=== PATIENT | female | born 1990 | race Two or more races ===

== ENCOUNTER 2021-03-08 01:40 | Emergency (ER) | payer MEDICAID, OTHER ==
[~2021-03-08] VITALS: Ht 157.5 cm; Wt 68.0 kg
[2021-03-08] MEDS ORDERED: ALBUTEROL SULF 2.5 MG/0.5ML(0.5%) NEB SOLN NEB ONE (01:45)
[2021-03-08] MEDS ORDERED: IPRATROPIUM BROM 0.5 MG/2.5ML INH SOL NEB ONE (01:45)
[2021-03-08 02:24] VITALS: BP 115/77
== END 2021-03-08 02:34 | disposition home or self-care (01) ==
LOC: ER 01:44
DX: J45.909 Unspecified asthma, uncomplicated (principal); T50.995A Adverse effect of other drugs, medicaments and biological substances, initial encounter; Y92.89 Other specified places as the place of occurrence of the external cause
CPT/HCPCS: 94640; 99283; J7644

== ENCOUNTER 2021-12-01 05:22 | Emergency (ER) | payer MEDICAID ==
[~2021-12-01] VITALS: Ht 157.5 cm; Wt 62.0 kg
[2021-12-01 06:22] LABS: Basophils # (auto) 0.1 10 ^3/uL (0-0.2); Basophils % (auto) 0.9 % (0.0-2.0); Eosinophils # (auto) 0.6 10 ^3/uL (0-0.8); Eosinophils % (auto) 6.9 % (0.0-7.0); Hematocrit 45.4 % (36.0-46.0); Hemoglobin 14.9 g/dL (12.2-16.2); Lymphocytes # (auto) 2.9 10 ^3/uL (0.4-5.4); Lymphocytes % (auto) 34.2 % (10.0-50.0); Mean Corpuscular Hemoglobin 31.4 pg (28.0-32.0); Mean Corpuscular Hgb Conc. 32.9 g/dL (32.0-36.0); Mean Corpuscular Volume 95.4 fL (80.0-100.0); Monocytes # (auto) 0.7 10 ^3/uL (0-1.3); Monocytes % (auto) 7.8 % (0.0-12.0); Neutrophils # (auto) 4.3 10 ^3/uL (1.6-8.6); Neutrophils % (auto) 50.2 % (37.0-80.0); Nucleated Red Blood Cells % 0.1 %; Red Blood Cells 4.76 10^6/uL (4.0-5.20); Red Cell Distribution Width 12.2 % (11.8-14.3); White Blood Cell 8.6 10^3/uL (4.4-10.8)
[2021-12-01 06:39] LABS: Urine Bacteria NONE SEEN /hpf (None Seen); Urine Blood Negative /uL (Negative); Urine Mucus FEW (None Seen); Urine WBC 3 /hpf (0 - 5)
[2021-12-01 06:40] LABS: Albumin 3.9 g/dL (3.4-5.0); BUN/Creatinine Ratio 12.2; Calcium 8.5 mg/dL (8.5-10.1); Potassium 3.9 mmol/L (3.5-5.1)
[2021-12-01 06:43] LABS: Bilirubin, Total 0.3 mg/dL (0.2-1.0); Total Protein 7.3 g/dL (6.4-8.2)
[2021-12-01] MEDS ORDERED: KETOROLAC TROMETH 60MG/2ML VIAL IM ONE (07:30)
[2021-12-01 08:50] VITALS: BP 128/84
[2021-12-01] MEDS ORDERED: IBUP600T27 PO (09:25)
== END 2021-12-01 09:29 | disposition home or self-care (01) ==
LOC: ER 05:22
DX: K59.00 Constipation, unspecified (principal); M54.50 Low back pain, unspecified; J45.909 Unspecified asthma, uncomplicated; Z79.1 Long term (current) use of non-steroidal anti-inflammatories (NSAID)
CPT/HCPCS: 36415; 74176; 80053; 81001; 83690; 84702; 85025; 96372; 99284; J1885

== ENCOUNTER 2022-01-15 09:40 | Emergency (ER) | payer MEDICAID, OTHER ==
[~2022-01-15] VITALS: Ht 154.9 cm; Wt 71.5 kg
[~2022-01-15 09:40] MED LIST: IBUP600T27 PO
[2022-01-15 10:55] VITALS: BP 113/75
== END 2022-01-15 18:53 | disposition left against medical advice (07) ==
LOC: ER 09:40
DX: T22.011A Burn of unspecified degree of right forearm, initial encounter (principal); Z53.21 Procedure and treatment not carried out due to patient leaving prior to being seen by health care provider; X15.8XXA Contact with other hot household appliances, initial encounter; Y93.89 Activity, other specified; Y92.89 Other specified places as the place of occurrence of the external cause; Y99.8 Other external cause status

== ENCOUNTER 2023-03-13 22:37 | Emergency (ER) | payer MEDICAID, OTHER ==
[~2023-03-13] VITALS: Ht 154.9 cm; Wt 68.8 kg
[~2023-03-13 22:37] MED LIST changes: +IBUP-1454 PO; -IBUP600T27 PO
[2023-03-13 22:58] VITALS: BP 107/69; PULSE 77; RESP 16; O2SAT 98
== END 2023-03-14 03:16 | disposition left against medical advice (07) ==
LOC: ER 22:37
DX: M25.511 Pain in right shoulder (principal); Z53.21 Procedure and treatment not carried out due to patient leaving prior to being seen by health care provider

== ENCOUNTER 2023-11-29 21:52 | Emergency (ER) | payer MEDICAID ==
[~2023-11-29] VITALS: Ht 154.9 cm; Wt 71.2 kg
[2023-11-29 22:45] VITALS: PULSE 111; RESP 16; O2SAT 95
[2023-11-30 00:30] VITALS: BP 109/80; PULSE 87; RESP 18; TEMP 98; O2SAT 93
[2023-11-30] MEDS: DexAMETHasone SOD PHOS 10MG/1ML VIAL INJ IM ONE (01:43)
[2023-11-30] MEDS ORDERED: FLUT250M2 INH (02:28)
== END 2023-11-30 02:34 | disposition home or self-care (01) ==
LOC: ER 21:52
DX: J45.30 Mild persistent asthma, uncomplicated (principal)
CPT/HCPCS: 71046; 96372; 99283; J1100

== ENCOUNTER 2024-01-02 19:05 | Emergency (ER) | payer MEDICAID ==
[~2024-01-02] VITALS: Ht 154.9 cm; Wt 69.8 kg
[2024-01-02 19:34] VITALS: BP 120/78; PULSE 79; RESP 18; TEMP 98.8; O2SAT 96
[2024-01-02] MEDS ORDERED: FLUT250M2 INH (20:06)
== END 2024-01-02 20:16 | disposition home or self-care (01) ==
LOC: ER 19:05
DX: J45.909 Unspecified asthma, uncomplicated (principal); Z76.0 Encounter for issue of repeat prescription

== ENCOUNTER 2024-05-11 07:22 | Inpatient (IN) | payer MEDICAID ==
[~2024-05-11] VITALS: Ht 157.5 cm; Wt 72.4 kg
--- NOTE | 2024-05-11 07:38 | ECG ---
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
--- NOTE | 2024-05-11 11:22 | ED.PDOC ---
GI ASSESSMENT HPI Comments 33 year old female presents to the ED with a chief complaint of abdominal pain onset 2 days. Patient states she began experiencing abdominal pain, worse ins suprapubic region as well as dark stool, nausea, vomiting, diarrhea, fever. PMHx asthma. Denies chest pain, dizziness, headache, blurry vision, dysuria, hematuria. No other symptoms or modifying factors present at this time. Chief Complaint: GI Bleed Time Seen by MD: 10:58 Primary Care Provider: unknown Reviewed Notes: Medications, Allergies Allergies: Coded Allergies: NO KNOWN ALLERGIES (Unverified , 03/08/21) Home Meds Active Scripts Ibuprofen (Ibuprofen) 600 Mg Tab, 600 MG PO TID, #30 TAB Prov:DANISH OTERO 12/01/21 Information Source: Patient Mode of Arrival: Ambulatory Timing: Days Duration: Since onset Prehospital treatment: None Quality: Cramping Stool: Tarry Severity: Moderate Recent: None Recent Hx of: None Pain Location: Suprapubic Modifying Factors: Nothing Associated sign and symptoms: Nausea, Vomiting, Diarrhea, Melena, Abdominal Pain, Fever Past Medical History PAST MEDICAL HISTORY: Asthma Surgical History: Denies all surgeries DIRECTOR TRANSPORTATION History: No Pertinent DIRECTOR TRANSPORTATION History Family History Family History: Reviewed,noncontributory to illness Social History Smoker: Non-Smoker Alcohol: Denies ETOH Use Drugs: Denies Drug Use Lives In: Home Constitutional: reports: fever; denies: chills, diaphoresis, fatigue, malaise, sweats, weakness, others EENTM: denies: blurred vision, double vision, ear bleeding, ear discharge, ear drainage, ear pain, ear ringing, eye pain, eye redness, hearing loss, mouth pain, mouth swelling, nasal discharge, nose bleeding, nose congestion, nose pain, photophobia, tearing, throat pain, throat swelling, voice changes, others Respiratory: denies: cough, hemoptysis, orthopnea, SOB at rest, shortness of breath, SOB with excertion, stridor, wheezing, others Cardiovascular: denies: chest pain, dizzy spells, diaphoresis, Dyspnea on exertion, edema, irregular heart beat, left arm pain, lightheadedness, palpitations, PND, syncope, others Gastrointestinal: reports: abdominal pain, diarrhea, melena, nausea, vomiting; denies: abdomen distended, blood streaked bowels, constipated, dysphagia, difficulty swallowing, hematemesis, poor appetite, poor fluid intake, rectal bleeding, rectal pain, others Genitourinary: denies: abnormal vagina bleeding, burning, dyspareunia, dysuria, flank pain, frequency, hematuria, incontinence, pain, , vagina discharge, urgency, others Neurological: denies: dizziness, fainting, headache, left sided numbness, left sided weakness, numbness, paresthesia, pre-existing deficit, right sided numbness, right sided weakness, seizure, speech problems, tingling, tremors, weakness, others Musculoskeletal: denies: back pain, gout, joint pain, joint swelling, muscle pain, muscle stiffness, neck pain, others Integumetry: denies: bruises, change in color, change in hair/nails, dryness, laceration, lesions, lumps, rash, wounds, others Allergic/Immunocompromised: denies: Difficulty Healing, Frequent Infections, Hives, Itching, others Hematologic/Lymphatic: denies: anemia, blood clots, easy bleeding, easy bruising, swollen glands, others Endocrine: denies: excessive hunger, excessive sweating, excessive thirst, excessive urination, flushing, intolerance to cold, intolerance to heat, unexplained weight gain, unexplained weight loss, others Psychiatric: denies: anxiety, bipolar disorder, depression, hopeless, panic disorder, schizophrenia, sleepless, suicidal, others All Other Systems: Reviewed and Negative Physical Exam General Appearance: Mild Distress, Obese HEENT: Normal ENT Inspection, PERRL/EOMI Neck: Full Range of Motion, Non-Tender Respiratory: Chest Non-Tender, Lungs Clear, No Accessory Muscle Use, No Respiratory Distress, Normal Breath Sounds Cardiovascular: Tachycardia Breast Exam: Deferred Gastrointestinal: No Organomegaly, Non Tender, No Pulsatile Mass, Normal Bowel Sounds, Soft Genitalia: Deferred Pelvic: Deferred Rectal: Deferred Extremities: No calf tenderness, Normal capillary refill, Normal inspection, Normal range of motion, Non-tender, No pedal edema Neurologic: Alert, green pipefitter II-XII nml as Tested, No Motor Deficits, Normal Affect, Normal Mood, No Sensory Deficits Cerebellar Function: Normal Reflexes: Normal Skin: Dry, Normal Color, Warm Peripheral Pulses: 1+ carotid (R), 1+ carotid (L) Lymphatic: No Adenopathy EKG EKG : Pulse Rate (adult): 129 Dexter: LAD Cardiac Rhythm: ST Hypertrophy: LAE Was a procedure done? Was a procedure done?: No GI differential Dx Differential Diagnosis: Diverticular disease, Esophagitis, Gastritis/PUD, Gastroenteritis, GI hemorrhage, Inflammatory BD, Pancreatitis, UTI, Dehydration, Diabetes/ DKA, Drug toxicity, Electrolyte Imbalance, Food Poisoning, , Hypovolemia, Renal Failure X-Ray, Labs, Meds, VS Vital Signs Date Time Temp Pulse Resp B/P (MAP) Pulse Ox O2 Delivery O2 Flow Rate FiO2 05/11/24 17:00 94 14 126/88 (101) 96 05/11/24 15:00 110 16 118/75 (89) 97 05/11/24 12:00 100 16 161/99 (119) 98 05/11/24 11:43 129 05/11/24 10:00 96 16 112/81 (91) 96 05/11/24 09:34 104 20 99 Room Air 05/11/24 09:34 98.1 104 20 123/79 (94) 99 98.1 05/11/24 07:33 129 05/11/24 07:30 98.1 110 18 124/73 (90) 93 Lab Test 05/11/24 12:30 05/11/24 12:00 Range/Units Urine Color Yellow Yellow Urine Clarity Clear Clear Urine pH 6.0 5.0-9.0 Urine Specific [place] 1.024 1.001-1.035 Urine Protein Trace H Negative Urine Ketones 1+ H Negative Urine Blood Negative Negative /uL Urine Nitrite Negative Negative Urine Bilirubin Negative Negative Urine Urobilinogen Normal Negative mg/dL Urine Leukocyte Esterase Negative Negative /uL Urine RBC 2 0 - 4 /hpf Urine WBC 1 0 - 5 /hpf Urine Squamous Epithelial Cells Few <5 /hpf Urine Bacteria None seen None Seen /hpf Urine Mucus Few None Seen Urine Glucose Normal Normal mg/dL White Blood Count 7.3 4.4-10.8 10^3/uL Red Blood Count 4.85 4.0-5.20 10^6/uL Hemoglobin 15.7 12.2-16.2 g/dL Hematocrit 47.0 H 36.0-46.0 % Mean Corpuscular Volume 97.0 80.0-100.0 fL Mean Corpuscular Hemoglobin 32.4 H 28.0-32.0 pg Mean Corpuscular Hemoglobin Concent 33.4 32.0-36.0 g/dL Red Cell Distribution Width 12.7 11.8-14.3 % Platelet Count 229 140-450 10^3/uL Mean Platelet Volume 7.2 6.9-10.8 fL Neutrophils (%) (Auto) 64.9 37.0-80.0 % Lymphocytes (%) (Auto) 21.0 10.0-50.0 % Monocytes (%) (Auto) 11.3 0.0-12.0 % Eosinophils (%) (Auto) 1.7 0.0-7.0 % Basophils (%) (Auto) 1.1 0.0-2.0 % Neutrophils # (Auto) 4.8 1.6-8.6 10 ^3/uL Lymphocytes # (Auto) 1.5 0.4-5.4 10 ^3/uL Monocytes # (Auto) 0.8 0-1.3 10 ^3/uL Eosinophils # (Auto) 0.1 0-0.8 10 ^3/uL Basophils # (Auto) 0.1 0-0.2 10 ^3/uL Nucleated Red Blood Cells 0.0 % Prothrombin Time 11.4 9.3-11.8 sec Prothrombin Time INR 1.08 0.9-1.15 Activated Partial Thromboplast Time 29.4 24.5-34.5 SEC Sodium Level 140 136-145 mmol/L Potassium Level 3.2 L 3.5-5.1 mmol/L Chloride Level 109 H 98-107 mmol/L Carbon Dioxide Level 23 20-31 mmol/L Anion Gap 8 5-15 Blood Urea Nitrogen 8 L 9-23 mg/dL Creatinine 0.71 0.550-1.02 mg/dL Glomerular Filtration Rate Calc 117 >90 mL/min BUN/Creatinine Ratio 11.3 10.0-20.0 Serum Glucose 95 74-106 mg/dL Calcium Level 8.5 L 8.7-10.4 mg/dL Magnesium Level 1.7 1.6-2.6 mg/dL Total Bilirubin 0.4 0.2-1.0 mg/dL Aspartate Amino Transferase (AST) 27 13-40 U/L Alanine Aminotransferase (ALT) 35 7-40 U/L Alkaline Phosphatase 102 46-116 U/L Total Protein 6.4 5.7-8.2 g/dL Albumin 4.0 3.2-4.8 g/dL Lipase 34 12-53 U/L Beta HCG, Quantitative 0.8 L 1.5-4.2 mIU/mL Current Medications Medications (Trade) Dose Ordered Sig/Daniel Route Start Time Stop Time Status Last Admin Sodium Chloride 1,000 ml @ 1,000 mls/hr Q1H ONCE IVB 05/11/24 11:15 05/11/24 12:14 DC 05/11/24 11:36 [place] [id number] Ph: [phone] DIAGNOSTIC IMAGING Diagnostic Imaging Report : [id number] Signed PATIENT: VIANNEY GONZALEZACCT: [id number] UNIT: [id number] : 1990 LOC: ER ROOM / BED: / AGE / SEX: 33 / F ADM STATUS: REG ER SERVICE [id number] ORDERING PHYSICIAN: MARITA SANTOS MD PROCEDURE(s): ABPLIV - CT AB PEL WITH IV CON ONLY REASON: RECTAL BLEEDING ORDER NUMBER(s): [id number], ACCESSION NUMBER(s): [id number] Procedure: CT CT AB PEL WITH IV CON ONLY 05/11/2024 01:48 PM Indication: RECTAL BLEEDING Comparison Study: None available at time of dictation. Technique: Axial images were obtained and reformatted in coronal and sagittal planes. All CT scans at this medical facility are performed using dose modulation techniques as appropriate to a performed exam including the following: Automated exposure control was utilized; adjustment of the MA and/or KV according to patient size; and use of iterative reconstruction technique. CT Dose: CTDI volume is 8 mGy. Dose-length product is 431 mGy*cm FINDINGS: Lower neck: Unremarkable. Cardiomediastinal: The heart is normal in size. Aorta is normal in caliber. No mediastinal lymphadenopathy. Lungs: No focal pulmonary opacity. No pleural effusion. No pneumothorax. Hepatobiliary: Unremarkable. Spleen: Unremarkable. Pancreas: Unremarkable. Adrenal Glands: Unremarkable. tract: The kidneys are normal in size bilaterally without hydronephrosis or nephrolithiasis. The urinary bladder is unremarkable. GI tract: The stomach is grossly normal in appearance. Nondistended fluid-filled small bowel loops are seen in the lower abdomen. Liquid stool is seen in the lumen of the ascending and transverse colon with well-healed mural hyperemia but without significant mural enhancement nor pericolonic fat stranding. Evaluation of the descending colon, sigmoid colon and rectum is limited due to lack of distention. Amorphous dense material noted in the lumen of the left colon and rectum. Lymphatics: No mesenteric, retroperitoneal or periportal lymphadenopathy. Vasculature: The abdominal aorta is normal in in caliber. Pelvic Organs: Small amount of free fluid is noted in cul-de-sac. The uterus and ovaries unremarkable. Bones/soft tissues: No acute osseous abnormality. A small fat-containing umbilical hernia noted. Other: None. IMPRESSION: 1. Amorphous dense material in the lumen of the descending colon, sigmoid colon and rectum which may reflect oral contrast or ingested material. Correlate with history. 2. Nondistended fluid-filled small bowel loops in the lower abdomen and liquid stool in the lumen of the large bowel may reflect gastroenteritis and diarrheal state. Mild colitis is a possibility. There is no significant large bowel wall thickening or pericolonic fat stranding but hyperemia noted. 3. Small amount of free fluid in cul-de-sac, probably physiologic. ATED BY: ALEXANDRIA WALTON MD DICTATED DATE/TIME: 05/11/241411 SIGNED BY: ALEXANDRIA WALTON MD SIGNED DATE/TIME: 05/11/241411 CC: [place] [address] Ph: [phone] DIAGNOSTIC IMAGING Diagnostic Imaging Report : [id number] Signed PATIENT: VIANNEY GONZALEZ ACCT: [id number] UNIT: [id number] : 1990 LOC: ER ROOM / BED: / AGE / SEX: 33 / F ADM STATUS: REG ER SERVICE 1109 ORDERING PHYSICIAN: MARITA SANTOS MD PROCEDURE(s): CXR2 - CHEST TWO VIEWS ROUTINE REASON: RECTAL BLEEDING ORDER NUMBER(s): [id number], ACCESSION NUMBER(s): [id number] EXAM: XY CHEST TWO VIEWS ROUTINE CLINICAL HISTORY: pain COMPARISON: XY CHEST TWO VIEWS ROUTINE on DOS: 11/30/23 TECHNIQUE: Frontal and lateral view of the chest was obtained FINDINGS: Lines and Tubes: None Lungs: No focal consolidation. Pleura: No effusion. No pneumothorax. Cardiomediastinal contours: Unremarkable Bones: No acute osseous abnormality. IMPRESSION: No acute cardiopulmonary disease. ATED BY: PARISH ARIAS MD DICTATED DATE/TIME: 05/11/241408 SIGNED BY: PARISH ARIAS MD SIGNED DATE/TIME: 05/11/241408 CC: X-Ray, Labs, Meds, VS Comment COURSE IN THE EMERGENCY DEPARTMENT EVENTFUL PATIENT CAME IN COMPLAINING OF GI BLEEDING ABDOMINAL CRAMPS BLACK STOOLS NAUSEA AND DIARRHEA AND FEVER FOR THE PAST THREE DAYS BLOOD PRESSURE 123/79 WITH A HEART RATE OF 104 CHEST X-RAY NORMAL EKG SHOWS SINUS TACHYCARDIA AT 129 WITH LEFT ATRIAL ENLARGEMENT LEFT AXIS DEVIATION CBC IS NORMAL URINE NEGATIVE INR 1.08 NEGATIVE LIPASE 34 MAGNESIUM 1.7 CMP NORMAL EXCEPT FOR POTASSIUM OF 3.2 PATIENT WILL BE ADMITTED FOR FURTHER CARE Time of 1ST Reevaluation: 11:28 Reevaluation 1ST: Unchanged Time of 2ND Reevaluation: 15:56 Reevaluation 2ND: Unchanged Patient Education/Counseling: Diagnosis, Treatment, Prognosis Family Education/Counseling: Diagnosis, Treatment, Prognosis (HE EMERGENCY DEPARTMENT PATIENT CAME BACK BECAUSE OF RECTAL BLEEDING ABDOMINAL CRAMPS BLACK STOOLS NAUSEA AND DIARRHEA AND FEVER FOR THE PAST THREE DAYSBLOOD PRESSURE 123/79EKG SHOWS SINUS TACHYCARDIA AT 129 WITH LEFT ATRIAL ENLARGEMENT AND LEFT AXIS DEVIATIONTHE CHEST X-RAY IS NEGATIVE CBC NORMAL URINE NEGATIVE INR 1.08 NEGATIVE LIPASE 34 MAGNESIUM 1.7 CMP NORMAL EXCEPT FOR POTASSIUM OF 3.2CT ABDOMEN AND PELVIS SHOWS MOST PROBABLY COLITIS), No Family Present Additional Information The following tests were ordered, and results were reviewed by me: EKG-x2, CBC, CMP, BETA HCG, LIPASE, UA, CT AB PEL W IV CON, PTPTT, MAGNESIUM, XY CHEST 2 VIEWS I reviewed and agreed with the following test results read by other providers: XY CHEST 2 VIEWS I discussed treatment and results with medical personnel and patient Departure 1 Departure Time of Disposition: 15:58 Impression: Primary Impression: Colitis Additional Impressions: Rectal bleeding Hypokalemia Tachycardia Disposition: ADMITTED INPATIENT Admit to: Tele Condition: Fair Critical Care Note Critical Care Time?: No Stability Stability form required: Yes Unstable for transfer: Telemetry monitoring (Telemetry monitoring required), Requires medication (Requires Med for stabilization) Heart Score Heart Score: Heart Score Response (Comments) Value History N/A 0 EKG Repolarization Disturb 1 Age <45 0 Risk Factors >3 or Hx ASHD 2 Troponin N/A 0 Total 3 I personally scribed for MARITA SANTOS MD ([email or web address]) on 05/11/24 at 11:22. Electronically submitted by Yoli Burgess ([email or web address]). I personally scribed for MARITA SANTOS MD ([email or web address]) on 05/11/24 at 11:29. Electronically submitted by Yoli Burgess ([email or web address]). I personally scribed for MARITA SANTOS MD ([email or web address]) on 05/11/24 at 15:28. Electronically submitted by Yoli Burgess ([email or web address]). MARITA SANTOS MD May 11, 2024 11:22
[2024-05-11] MEDS: SODIUM CHLORIDE 0.9% 1,000 ML IVB ONE (11:36)
[2024-05-11 12:14] LABS: Basophils # (auto) 0.1 10 ^3/uL (0-0.2); Basophils % (auto) 1.1 % (0.0-2.0); Eosinophils # (auto) 0.1 10 ^3/uL (0-0.8); Eosinophils % (auto) 1.7 % (0.0-7.0); Hemoglobin 15.7 g/dL (12.2-16.2); Lymphocytes # (auto) 1.5 10 ^3/uL (0.4-5.4); Mean Corpuscular Hemoglobin 32.4 pg (28.0-32.0); Mean Corpuscular Hgb Conc. 33.4 g/dL (32.0-36.0); Monocytes # (auto) 0.8 10 ^3/uL (0-1.3); Monocytes % (auto) 11.3 % (0.0-12.0); Neutrophils # (auto) 4.8 10 ^3/uL (1.6-8.6); Neutrophils % (auto) 64.9 % (37.0-80.0); Platelet Count (auto) 229 10^3/uL (140-450); Red Blood Cells 4.85 10^6/uL (4.0-5.20); Red Cell Distribution Width 12.7 % (11.8-14.3); White Blood Cell 7.3 10^3/uL (4.4-10.8)
[2024-05-11 12:33] LABS: INR 1.08 (0.9-1.15); Partial Thromboplastin Time 29.4 SEC (24.5-34.5); Prothrombin Time 11.4 sec (9.3-11.8)
[2024-05-11 12:57] LABS: Alanine Aminotransferase 35 U/L (7-40); Alkaline Phosphatase 102 U/L (46-116); Anion Gap 8 (5-15); Aspartate Aminotransferase 27 U/L (13-40); BUN/Creatinine Ratio 11.3 (10.0-20.0); Bilirubin, Total 0.4 mg/dL (0.2-1.0); Carbon Dioxide 23 mmol/L (20-31); Glucose 95 mg/dL (74-106); Lipase 34 U/L (12-53); Magnesium 1.7 mg/dL (1.6-2.6); Sodium 140 mmol/L (136-145); Total Protein 6.4 g/dL (5.7-8.2)
[2024-05-11 13:00] LABS: Urine Bacteria None Seen /hpf (None Seen)
[2024-05-11 13:02] LABS: Blood Urea Nitrogen 8 mg/dL (9-23); Calcium 8.5 mg/dL (8.7-10.4); Chloride 109 mmol/L (98-107); Potassium 3.2 mmol/L (3.5-5.1)
[2024-05-11 13:06] LABS: Urine Blood Negative /uL (Negative); Urine Clarity Clear (Clear); Urine Color Yellow (Yellow); Urine Mucus FEW (None Seen); Urine Protein, UAD TRACE (Negative); Urine Specific Gravity 1.024 (1.001-1.035); Urine Squamous Epithelial Cell FEW /hpf (<5); Urine Urobilinogen Normal (Negative); Urine WBC 1 /hpf (0 - 5)
[2024-05-11] MEDS: IOHEXOL 300 MG/ML 100ML BOTTLE IJ ONE (13:58)
--- NOTE | 2024-05-11 14:10 | DVH ---
EXAM: XY CHEST TWO VIEWS ROUTINE CLINICAL HISTORY: pain COMPARISON: XY CHEST TWO VIEWS ROUTINE on DOS: 11/30/23 TECHNIQUE: Frontal and lateral view of the chest was obtained FINDINGS: Lines and Tubes: None Lungs: No focal consolidation. Pleura: No effusion. No pneumothorax. Cardiomediastinal contours: Unremarkable Bones: No acute osseous abnormality. IMPRESSION: No acute cardiopulmonary disease.
--- NOTE | 2024-05-11 14:14 | DVH ---
Procedure: CT CT AB PEL WITH IV CON ONLY 05/11/2024 01:48 PM Indication: RECTAL BLEEDING Comparison Study: None available at time of dictation. Technique: Axial images were obtained and reformatted in coronal and sagittal planes. All CT scans at this medical facility are performed using dose modulation techniques as appropriate t o a performed exam including the following: Automated exposure control was utilized; adjustment of th e MA and/or KV according to patient size; and use of iterative reconstruction technique. CT Dose: CTDI volume is 8 mGy. Dose-length product is 431 mGy*cm FINDINGS: Lower neck: Unremarkable. Cardiomediastinal: The heart is normal in size. Aorta is normal in caliber. No mediastinal lymphadeno marti. Lungs: No focal pulmonary opacity. No pleural effusion. No pneumothorax. Hepatobiliary: Unremarkable. Spleen: Unremarkable. Pancreas: Unremarkable. Adrenal Glands: Unremarkable. tract: The kidneys are normal in size bilaterally without hydronephrosis or nephrolithiasis. The urinary bladder is unremarkable. GI tract: The stomach is grossly normal in appearance. Nondistended fluid-filled small bowel loops ar e seen in the lower abdomen. Liquid stool is seen in the lumen of the ascending and transverse colon with well-healed mural hyperemia but without significant mural enhancement nor pericolonic fat strand ing. Evaluation of the descending colon, sigmoid colon and rectum is limited due to lack of distenti on. Amorphous dense material noted in the lumen of the left colon and rectum. Lymphatics: No mesenteric, retroperitoneal or periportal lymphadenopathy. Vasculature: The abdominal aorta is normal in in caliber. Pelvic Organs: Small amount of free fluid is noted in cul-de-sac. The uterus and ovaries unremarkabl e. Bones/soft tissues: No acute osseous abnormality. A small fat-containing umbilical hernia noted. Other: None. IMPRESSION: 1. Amorphous dense material in the lumen of the descending colon, sigmoid colon and rectum which may reflect oral contrast or ingested material. Correlate with history. 2. Nondistended fluid-filled small bowel loops in the lower abdomen and liquid stool in the lumen of the large bowel may reflect gastroenteritis and diarrheal state. Mild colitis is a possibility. There is no significant large bowel wall thickening or pericolonic fat stranding but hyperemia noted. 3. Small amount of free fluid in cul-de-sac, probably physiologic.
[2024-05-11] MEDS ORDERED: ONDANSETRON HCL 4 MG/2 ML VIAL IV PRN (18:30)
[2024-05-11] MEDS ORDERED: ACETAMINOPHEN 325 MG TAB PO PRN (18:30)
[2024-05-11] MEDS ORDERED: TEMAZEPAM 15 MG CAP PO PRN (18:30)
[2024-05-11] MEDS: SOD CHL 0.9%/ KCL 40MEQ 1,000 ML IV ONE (18:30)
[2024-05-11] MEDS ORDERED: HYDROcodone-ACET 5/325MG TAB PO PRN (18:30)
[2024-05-11] MEDS: PANTOPRAZOLE 40 MG TAB PO ONE (18:59)
--- NOTE | 2024-05-11 20:26 | DVHHP2 ---
History of Present Illness Reason for Visit: Diarrhea History of Present Illness 33-year-old female presents for evaluation of abdominal pain. Patient endorses a two day history of pain like abdominal pain with associated bloody diarrhea, nausea and vomiting. Denies hematuria. No fever or chills she denies. No other acute complaints reported. Past Medical History Asthma Past Surgical History Denies Family History Noncontributory Smoke: No Drugs: None Lives: with Family Review of Systems Review of Systems Review of systems are currently negative otherwise addressed in HPI. Allergies: Coded Allergies: NO KNOWN ALLERGIES (Unverified , 03/08/21) Medications Current Medications Medications Dose Ordered Sig/Daniel Route Start Time Stop Time Status Last Admin Dose Admin Metronidazole 100 ml @ 100 mls/hr Q8HR IV 05/11/24 22:00 Pantoprazole Sodium 40 mg DAILY@0600 PO 05/12/24 06:00 Acetaminophen/ Hydrocodone Bitart 1 tab Q4HP PRN PO 05/11/24 18:30 Temazepam 15 mg QHSP PRN PO 05/11/24 18:30 Ondansetron HCl 4 mg Q4HP PRN IV 05/11/24 18:30 Acetaminophen 650 mg Q6HP PRN PO 05/11/24 18:30 Exam Vital Signs Vital Signs Date Time Temp Pulse Resp B/P (MAP) Pulse Ox O2 Delivery O2 Flow Rate FiO2 05/11/24 19:44 Room Air* 0 21 05/11/24 19:39 98.8 98 14 115/79 (91) 94 98.8 Exam Gen: 33-year-old female in mild distress Skin: Warm, dry, normal color and texture, no rash. HEENT: Normocephalic atraumatic, mucous membranes moist and pink. Neck: Cervical and supraclavicular nodes normal without enlargement, trachea is midline, thyroid gland is normal without masses. Pulmonary: Clear to auscultation and percussion bilaterally. Cardiac: Regular rate and rhythm. No murmur Abdomen: Soft, nontender, nondistended, bowel sounds present all 4 quadrants, no guarding, no rigidity, no organomegaly. Extremities: No cyanosis, clubbing, no edema Neuro: Cranial nerves II through XII grossly intact, normal affect and speech, no focal motor deficits. Labs/Xrays ORDERING PHYSICIAN: MARITA SANTOS MD PROCEDURE(s): ABPLIV - CT AB PEL WITH IV CON ONLY REASON: RECTAL BLEEDING ORDER NUMBER(s): [id number], ACCESSION NUMBER(s): [id number] Procedure: CT CT AB PEL WITH IV CON ONLY 05/11/2024 01:48 PM Indication: RECTAL BLEEDING Comparison Study: None available at time of dictation. Technique: Axial images were obtained and reformatted in coronal and sagittal planes. All CT scans at this medical facility are performed using dose modulation techniques as appropriate to a performed exam including the following: Automated exposure control was utilized; adjustment of the MA and/or KV according to patient size; and use of iterative reconstruction technique. CT Dose: CTDI volume is 8 mGy. Dose-length product is 431 mGy*cm FINDINGS: Lower neck: Unremarkable. Cardiomediastinal: The heart is normal in size. Aorta is normal in caliber. No mediastinal lymphadenopathy. Lungs: No focal pulmonary opacity. No pleural effusion. No pneumothorax. Hepatobiliary: Unremarkable. Spleen: Unremarkable. Pancreas: Unremarkable. Adrenal Glands: Unremarkable. tract: The kidneys are normal in size bilaterally without hydronephrosis or nephrolithiasis. The urinary bladder is unremarkable. GI tract: The stomach is grossly normal in appearance. Nondistended fluid-filled small bowel loops are seen in the lower abdomen. Liquid stool is seen in the lumen of the ascending and transverse colon with well-healed mural hyperemia but without significant mural enhancement nor pericolonic fat stranding. Evaluation of the descending colon, sigmoid colon and rectum is limited due to lack of distention. Amorphous dense material noted in the lumen of the left colon and rectum. Lymphatics: No mesenteric, retroperitoneal or periportal lymphadenopathy. Vasculature: The abdominal aorta is normal in in caliber. Pelvic Organs: Small amount of free fluid is noted in cul-de-sac. The uterus and ovaries unremarkable. Bones/soft tissues: No acute osseous abnormality. A small fat-containing umbilical hernia noted. Other: None. IMPRESSION: 1. Amorphous dense material in the lumen of the descending colon, sigmoid colon and rectum which may reflect oral contrast or ingested material. Correlate with history. 2. Nondistended fluid-filled small bowel loops in the lower abdomen and liquid stool in the lumen of the large bowel may reflect gastroenteritis and diarrheal state. Mild colitis is a possibility. There is no significant large bowel wall thickening or pericolonic fat stranding but hyperemia noted. 3. Small amount of free fluid in cul-de-sac, probably physiologic. RING PHYSICIAN: MARITA SANTOS MD PROCEDURE(s): CXR2 - CHEST TWO VIEWS ROUTINE REASON: RECTAL BLEEDING ORDER NUMBER(s): [id number], ACCESSION NUMBER(s): [id number] EXAM: XY CHEST TWO VIEWS ROUTINE CLINICAL HISTORY: pain COMPARISON: XY CHEST TWO VIEWS ROUTINE on DOS: 11/30/23 TECHNIQUE: Frontal and lateral view of the chest was obtained FINDINGS: Lines and Tubes: None Lungs: No focal consolidation. Pleura: No effusion. No pneumothorax. Cardiomediastinal contours: Unremarkable Bones: No acute osseous abnormality. IMPRESSION: No acute cardiopulmonary disease. Labs Test 05/11/24 12:30 05/11/24 12:00 Range/Units Urine Color Yellow Yellow Urine Clarity Clear Clear Urine pH 6.0 5.0-9.0 Urine Specific [place] 1.024 1.001-1.035 Urine Protein Trace H Negative Urine Ketones 1+ H Negative Urine Blood Negative Negative /uL Urine Nitrite Negative Negative Urine Bilirubin Negative Negative Urine Urobilinogen Normal Negative mg/dL Urine Leukocyte Esterase Negative Negative /uL Urine RBC 2 0 - 4 /hpf Urine WBC 1 0 - 5 /hpf Urine Squamous Epithelial Cells Few <5 /hpf Urine Bacteria None seen None Seen /hpf Urine Mucus Few None Seen Urine Glucose Normal Normal mg/dL White Blood Count 7.3 4.4-10.8 10^3/uL Red Blood Count 4.85 4.0-5.20 10^6/uL Hemoglobin 15.7 12.2-16.2 g/dL Hematocrit 47.0 H 36.0-46.0 % Mean Corpuscular Volume 97.0 80.0-100.0 fL Mean Corpuscular Hemoglobin 32.4 H 28.0-32.0 pg Mean Corpuscular Hemoglobin Concent 33.4 32.0-36.0 g/dL Red Cell Distribution Width 12.7 11.8-14.3 % Platelet Count 229 140-450 10^3/uL Mean Platelet Volume 7.2 6.9-10.8 fL Neutrophils (%) (Auto) 64.9 37.0-80.0 % Lymphocytes (%) (Auto) 21.0 10.0-50.0 % Monocytes (%) (Auto) 11.3 0.0-12.0 % Eosinophils (%) (Auto) 1.7 0.0-7.0 % Basophils (%) (Auto) 1.1 0.0-2.0 % Neutrophils # (Auto) 4.8 1.6-8.6 10 ^3/uL Lymphocytes # (Auto) 1.5 0.4-5.4 10 ^3/uL Monocytes # (Auto) 0.8 0-1.3 10 ^3/uL Eosinophils # (Auto) 0.1 0-0.8 10 ^3/uL Basophils # (Auto) 0.1 0-0.2 10 ^3/uL Nucleated Red Blood Cells 0.0 % Prothrombin Time 11.4 9.3-11.8 sec Prothrombin Time INR 1.08 0.9-1.15 Activated Partial Thromboplast Time 29.4 24.5-34.5 SEC Sodium Level 140 136-145 mmol/L Potassium Level 3.2 L 3.5-5.1 mmol/L Chloride Level 109 H 98-107 mmol/L Carbon Dioxide Level 23 20-31 mmol/L Anion Gap 8 5-15 Blood Urea Nitrogen 8 L 9-23 mg/dL Creatinine 0.71 0.550-1.02 mg/dL Glomerular Filtration Rate Calc 117 >90 mL/min BUN/Creatinine Ratio 11.3 10.0-20.0 Serum Glucose 95 74-106 mg/dL Calcium Level 8.5 L 8.7-10.4 mg/dL Magnesium Level 1.7 1.6-2.6 mg/dL Total Bilirubin 0.4 0.2-1.0 mg/dL Aspartate Amino Transferase (AST) 27 13-40 U/L Alanine Aminotransferase (ALT) 35 7-40 U/L Alkaline Phosphatase 102 46-116 U/L Total Protein 6.4 5.7-8.2 g/dL Albumin 4.0 3.2-4.8 g/dL Lipase 34 12-53 U/L Beta HCG, Quantitative 0.8 L 1.5-4.2 mIU/mL Assessment/Plan Assessment/Plan Assessment Acute abdominal pain Acute colitis Hypokalemia Acute kidney injury Plan Admit the patient to Med surge to the hospitalist Clear liquid diet Maintenance IV fluids Flagyl Continue treatment per orders. Plan discussed with: Patient My Orders Orders - HAIDER HORTON Procedure Category Date Status Time Sod Chl 0.9%/ Kcl PHA 05/11/24 In Process 40meq 18:30 Metronidazole PHA 05/11/24 In Process 500mg/100ml (Flagyl 22:00 Pantoprazole Tablet PHA 05/12/24 In Process (Protonix Tablet) 06:00 Basic Metabolic Panel LAB 05/12/24 Verified 04:00 Stool Occult Blood LAB 05/11/24 Logged 18:27 Admit ADMIT 05/11/24 Transmitted 18:27 Hydrocodone-Acet PHA 05/11/24 In Process 5/325mg Tab ([place] 18:30 Temazepam (Restoril) PHA 05/11/24 In Process 18:30 Ondansetron Hcl PHA 05/11/24 In Process (Zofran) 18:30 Complete Blood Count LAB 05/12/24 Verified 04:00 Condition: Stable SHRUTHI 05/11/24 In Process 18:27 Acetaminophen Tablet PHA 05/11/24 In Process (Tylenol Tablet) 18:30 Clear Liq Diet DIET 05/11/24 Transmitted Dinner Bedrest With Bathroom SHRUTHI 05/11/24 In Process Privileg 18:27 Date of Service: May 11, 2024 Billing Provider: HAIDER HORTON Common Visit Codes: [id number] INP/OBS CARE (HIGH) HAIDER HORTON May 11, 2024 20:26
[2024-05-11 20:55] VITALS: BP 119/79; PULSE 97; RESP 16; RESP 98; TEMP 97.8; O2SAT 98
[2024-05-11] MEDS: metroNIDAZOLE 500MG/100ML 100 ML IV SCH (22:37)
[2024-05-12 05:14] LABS: Basophils # (auto) 0.1 10 ^3/uL (0-0.2); Basophils % (auto) 0.9 % (0.0-2.0); Eosinophils # (auto) 0.2 10 ^3/uL (0-0.8); Eosinophils % (auto) 3.4 % (0.0-7.0); Hematocrit 43.3 % (36.0-46.0); Hemoglobin 15.1 g/dL (12.2-16.2); Lymphocytes # (auto) 2.3 10 ^3/uL (0.4-5.4); Lymphocytes % (auto) 33.4 % (10.0-50.0); Mean Corpuscular Hemoglobin 32.8 pg (28.0-32.0); Mean Corpuscular Hgb Conc. 34.8 g/dL (32.0-36.0); Mean Corpuscular Volume 94.4 fL (80.0-100.0); Monocytes % (auto) 14.3 % (0.0-12.0); Neutrophils # (auto) 3.3 10 ^3/uL (1.6-8.6); Nucleated Red Blood Cells % 0.2 %; Platelet Count (auto) 232 10^3/uL (140-450); Red Blood Cells 4.59 10^6/uL (4.0-5.20); Red Cell Distribution Width 12.3 % (11.8-14.3); White Blood Cell 6.9 10^3/uL (4.4-10.8)
[2024-05-12 05:17] LABS: Calcium 8.8 mg/dL (8.7-10.4); Chloride 105 mmol/L (98-107); Sodium 138 mmol/L (136-145)
[2024-05-12 05:18] LABS: Anion Gap 8 (5-15); Carbon Dioxide 25 mmol/L (20-31)
[2024-05-12 05:23] LABS: BUN/Creatinine Ratio 8.6 (10.0-20.0); Glucose 92 mg/dL (74-106)
[2024-05-12 05:25] LABS: Blood Urea Nitrogen 6 mg/dL (9-23); Potassium 2.9 mmol/L (3.5-5.1)
[2024-05-12] MEDS: PANTOPRAZOLE 40 MG TAB PO SCH (05:43)
[2024-05-12 08:04] VITALS: BP 100/61; PULSE 89; RESP 20; TEMP 98.2; O2SAT 94
[2024-05-12 11:22] VITALS: BP 96/68; PULSE 86; RESP 18; TEMP 97.8; O2SAT 94
[2024-05-12] MEDS ORDERED: LEVO500T91 PO (13:06)
[2024-05-12] MEDS ORDERED: METR-344 PO (13:06)
--- NOTE | 2024-05-12 13:10 | DVHDS2 ---
Discharge Summary Date of Admission May 11, 2024 at 18:27 Date of Discharge: May 12, 2024 Admitting Diagnosis Acute colitis Labs/Diagnostic Data: Laboratory Results Test 05/12/24 04:55 05/11/24 12:30 05/11/24 12:00 White Blood Count 6.9 10^3/uL (4.4-10.8) Red Blood Count 4.59 10^6/uL (4.0-5.20) Hemoglobin 15.1 g/dL (12.2-16.2) Hematocrit 43.3 % (36.0-46.0) Mean Corpuscular Volume 94.4 fL (80.0-100.0) Mean Corpuscular Hemoglobin 32.8 pg (28.0-32.0) Mean Corpuscular Hemoglobin Concent 34.8 g/dL (32.0-36.0) Red Cell Distribution Width 12.3 % (11.8-14.3) Platelet Count 232 10^3/uL (140-450) Mean Platelet Volume 7.5 fL (6.9-10.8) Neutrophils (%) (Auto) 48.0 % (37.0-80.0) Lymphocytes (%) (Auto) 33.4 % (10.0-50.0) Monocytes (%) (Auto) 14.3 % (0.0-12.0) Eosinophils (%) (Auto) 3.4 % (0.0-7.0) Basophils (%) (Auto) 0.9 % (0.0-2.0) Neutrophils # (Auto) 3.3 10 ^3/uL (1.6-8.6) Lymphocytes # (Auto) 2.3 10 ^3/uL (0.4-5.4) Monocytes # (Auto) 1.0 10 ^3/uL (0-1.3) Eosinophils # (Auto) 0.2 10 ^3/uL (0-0.8) Basophils # (Auto) 0.1 10 ^3/uL (0-0.2) Nucleated Red Blood Cells 0.2 % Sodium Level 138 mmol/L (136-145) Potassium Level 2.9 mmol/L (3.5-5.1) Chloride Level 105 mmol/L (98-107) Carbon Dioxide Level 25 mmol/L (20-31) Anion Gap 8 (5-15) Blood Urea Nitrogen 6 mg/dL (9-23) Creatinine 0.70 mg/dL (0.550-1.02) Glomerular Filtration Rate Calc 119 mL/min (>90) BUN/Creatinine Ratio 8.6 (10.0-20.0) Serum Glucose 92 mg/dL (74-106) Calcium Level 8.8 mg/dL (8.7-10.4) Urine Color Yellow (Yellow) Urine Clarity Clear (Clear) Urine pH 6.0 (5.0-9.0) Urine Specific [place] 1.024 (1.001-1.035) Urine Protein Trace (Negative) Urine Ketones 1+ (Negative) Urine Blood Negative /uL (Negative) Urine Nitrite Negative (Negative) Urine Bilirubin Negative (Negative) Urine Urobilinogen Normal mg/dL (Negative) Urine Leukocyte Esterase Negative /uL (Negative) Urine RBC 2 /hpf (0 - 4) Urine WBC 1 /hpf (0 - 5) Urine Squamous Epithelial Cells Few /hpf (<5) Urine Bacteria None seen /hpf (None Seen) Urine Mucus Few (None Seen) Urine Glucose Normal mg/dL (Normal) Prothrombin Time 11.4 sec (9.3-11.8) Prothrombin Time INR 1.08 (0.9-1.15) Activated Partial Thromboplast Time 29.4 SEC (24.5-34.5) Magnesium Level 1.7 mg/dL (1.6-2.6) Total Bilirubin 0.4 mg/dL (0.2-1.0) Aspartate Amino Transferase (AST) 27 U/L (13-40) Alanine Aminotransferase (ALT) 35 U/L (7-40) Alkaline Phosphatase 102 U/L (46-116) Total Protein 6.4 g/dL (5.7-8.2) Albumin 4.0 g/dL (3.2-4.8) Lipase 34 U/L (12-53) Beta HCG, Quantitative 0.8 mIU/mL (1.5-4.2) Other Laboratory Tests 05/12/24 04:55 Brief Hx & Hospital Course: History of Present Illness 33-year-old female presents for evaluation of abdominal pain. Patient endorses a two day history of pain like abdominal pain with associated bloody diarrhea, nausea and vomiting. Denies hematuria. No fever or chills she denies. No other acute complaints reported. Course of hospitalization: Patient was states that she has not had a bowel movement since being admitted in the hospital. She reports that her abdominal pain has improved. She states that she has been tolerating oral intake without any nausea, vomiting, or abdominal pain. Discussion was made with the patient regarding CT scan findings. Patient was agreeable to be discharged home and continue IV antibiotic therapy with Levaquin 500 mg p.o. daily x5 days as well as Flagyl 500 mg 3 times a day x5 days. She was instructed to follow up with the discharge Clinic in one week. The patient will also have potassium replete prior to being discharged. Physical examination General: Alert and Oriented x3. No acute distress. Well-nourished. Eyes: EOMI. Anicteric. HENT: Moist mucous membranes. Lungs: Clear to auscultation bilaterally. No accessory muscle use. Cardiovascular: Regular rate and rhythm. No murmur. No JVD. Abdomen: Soft, non-tender and non-distended. No palpable masses. Extremities: No edema. Non-tender. Skin: No rashes or lesions. Warm. Neurologic: No focal neurological deficits. CN II-XII grossly intact, but not individually tested. Psychiatric: Cooperative. Appropriate mood and affect. Total time spent with patient discussing and formulating plan of care: 35 minutes. This medical document was created using an electronic medical record system with [employer] dictation system. Although this document has been carefully reviewed, there may still be some phonetic and typographical errors. These areas are purely typographical due to imperfections of the software programs, and do not reflect any compromise in the patient's medical care. Condition at Discharge: Fair Final Diagnosis/Problems List Colitis Secondary Diagnosis: Hypokalemia Asthma Abdominal pain secondary to acute colitis Discharge Disposition: Home Discharge Instruct/Medications Diet: Regular Activity: No Restrictions, As Tolerated Follow Up/Referral: Discharge Clinic in one week Medications: Levaquin 500 mg p.o. x5 days Flagyl 500 mg p.o. 3 times a day x5 days 36 Discharge Statement: "Patient was advised to return to the ER or call 911 if any headaches, dizziness, shortness of breath, chest pain, abdominal pain, bleeding, fevers, or worsening of medical condition. Patient was counseled about treatment plan, medications, possible side effects, patientverbalized understanding. All questions were answered to the best of my ability. This discharge took greater then 30 minutes in planning, reviewing documentation, counseling the patient, and discussing with other team members." ASSESSMENT ASSESSMENT Assessment Colitis Date of Service: May 12, 2024 Billing Provider: ISMAEL SILVA NP Common Visit Codes: [id number] INP/OBS CARE(HIGH) ISMAEL SILVA NP May 12, 2024 13:09
[2024-05-12] MEDS: POTASSIUM EFFERVESENT TAB 25 MEQ PO ONE (13:22)
[2024-05-12] MEDS: cefTRIAXone 1GM/50ML D5W 50 ML IV SCH (13:23)
== END 2024-05-12 16:07 | disposition home or self-care (01) | DRG 248 ==
LOC: ER 07:22 → OVERFLOW 18:27
PROVIDERS: ADMIT Nurse Practitioner; ATTEND Nurse Practitioner Acute Care
DX: A04.9 Bacterial intestinal infection, unspecified (principal); N17.9 Acute kidney failure, unspecified; E87.6 Hypokalemia; J45.909 Unspecified asthma, uncomplicated; R00.0 Tachycardia, unspecified
CPT/HCPCS: 36415; 71046; 74177; 80048; 80053; 81001; 83690; 83735; 84702; 85025; 85610; 85730; 93005; 96361; 96365; G0378; J3490